=== PATIENT | female | born 2000 | race African-American/Black ===

== ENCOUNTER 2023-02-26 14:07 | Inpatient (IN) | payer OTHER ==
[2023-02-26 15:16] VITALS: BMI 26.4
[2023-02-26] MEDS ORDERED: Penicillin G Potassium 5 MILL.UNITS in Sodium Chloride 0.9% 100 ML IVPB SCH (15:16)
[2023-02-26] MEDS ORDERED: HYDROcodone/Acetaminophen 5/325 mg Tablet PO PRN ×2 (15:16)
[2023-02-26] MEDS ORDERED: Diphenoxylate HCl/Atropine Tablet PO PRN ×2 (15:16)
[2023-02-26] MEDS ORDERED: Butorphanol Tartrate 1 MG/ML VIAL SLOW IVP PRN (15:16)
[2023-02-26] MEDS ORDERED: Docusate 100 MG CAP PO PRN (15:16)
[2023-02-26] MEDS ORDERED: Ibuprofen 800 MG TAB PO PRN (15:16)
[2023-02-26] MEDS ORDERED: Lidocaine 1% (PF) 30 ML VIAL SC PRN (15:16)
[2023-02-26] MEDS ORDERED: hydrALAZINE 20 MG/ML VIAL SLOW IVP PRN (15:16)
[2023-02-26] MEDS ORDERED: Acetaminophen 500 MG TAB PO PRN (15:16)
[2023-02-26] MEDS ORDERED: Promethazine HCl 25 MG/ML VIAL IM PRN (15:16)
[2023-02-26] MEDS ORDERED: Zolpidem Tartrate 5 MG TAB PO PRN (15:16)
[2023-02-26] MEDS ORDERED: Misoprostol 200 MCG TAB PR PRN (15:16)
[2023-02-26] MEDS ORDERED: Ondansetron PF 4 MG/2 ML Vial IVP PRN (15:16)
[2023-02-26] MEDS ORDERED: Carboprost 250 MCG/ML AMP IM PRN (15:16)
[2023-02-26] MEDS ORDERED: NS w/ Oxytocin 30 units 500 ML IV SCH ×3 (15:16)
[2023-02-26] MEDS: Misoprostol 100 MCG TAB VAG SCH ×2 (15:30→19:54)
[2023-02-26] MEDS: Lactated Ringer's 1,000 ML IV SCH (15:30)
[2023-02-26 15:32] LABS: Hematocrit 34.9 % (34.9-44.5); Mean Corpuscular HGB CONC 34.4 g/dL (32.0-36.0); Mean Corpuscular Hemoglobin 32.6 pg (27.0-33.0); Mean Corpuscular Volume 94.8 fl (81.6-98.3); Mean Platelet Volume 10.4 fl (7.4-10.4); Platelet Count 249 10x3/uL (150-450); RBC Distribution Width 13.7 % (11.5-14.5); Red Blood Cell (RBC) Count 3.68 10x6/uL (3.90-5.03); White Blood Cell (WBC) Count 5.1 10x3/uL (3.5-10.5)
[2023-02-26 15:52] LABS: Syphilis Antibody Nonreactive (Nonreactive); Syphilis Antibody Index 0.16 S/CO (<1.00 Non-Reactive)
[2023-02-26 15:54] LABS: HBSAg Index 0.19 S/CO (0-0.99); HIV (1/2) Antibody/Antigen Non-Reactive (NonReactive); HIV 1/2 INDEX 0.09 S/CO (<1.00); Hep B Surf Ag - L&D Non-Reactive S/CO (NonReactive)
[2023-02-26] MEDS: Penicillin G 2.5 MILL.units 2.5 MILL.UNITS in Premix Bag 1 BAG IVPB SCH (19:54)
[2023-02-27] MEDS ORDERED: fentaNYL 2 mcg/Ropivacaine 0.2% Epidural 100 ML CADD ONE (00:01)
[2023-02-27] MEDS ORDERED: Promethazine HCl 25 MG/ML VIAL IM PRN (00:45)
[2023-02-27] MEDS ORDERED: fentaNYL 2 mcg/Ropivacaine 0.2% Epidural 100 ML CADD EPIDURAL SCH (00:45)
[2023-02-27] MEDS ORDERED: ePHEDrine Sulfate 50 MG/10 ML VIAL SLOW IVP PRN (00:45)
[2023-02-27] MEDS ORDERED: Acetaminophen 325 MG TAB PO PRN ×2 (00:45→01:11)
[2023-02-27] MEDS ORDERED: Naloxone HCl 0.4 mg/ml Vial IVP PRN ×2 (00:45)
[2023-02-27] MEDS ORDERED: Ondansetron PF 4 MG/2 ML Vial IVP PRN ×2 (00:45→01:09)
[2023-02-27] MEDS ORDERED: Moisturizing Cream (Eucerin) 113 GM JAR TOP PRN (00:45)
[2023-02-27] MEDS ORDERED: Lactated Ringer's 500 ML IV PRN (00:45)
[2023-02-27] MEDS ORDERED: diphenhydrAMINE 50 MG/ML VIAL IVP PRN (00:45)
[2023-02-27] MEDS ORDERED: Communication Order-Pharmacy FS SCH (00:45)
[2023-02-27] MEDS ORDERED: Benzocaine-Menthol 82.5 ML CAN TOP PRN (01:09)
[2023-02-27] MEDS ORDERED: Boostrix 0.5 ML (Tdap) VIAL (>/=7 yrs of age) IM ONE (01:09)
[2023-02-27] MEDS ORDERED: HYDROcodone/Acetaminophen 5/325 mg Tablet PO PRN ×2 (01:09)
[2023-02-27] MEDS ORDERED: Milk Of Magnesia 30 ML UDCUP PO PRN (01:09)
[2023-02-27] MEDS ORDERED: diphenhydrAMINE 25 MG CAP PO PRN (01:09)
[2023-02-27] MEDS ORDERED: Zolpidem Tartrate 5 MG TAB PO PRN (01:09)
[2023-02-27] MEDS ORDERED: Lanolin Ointment 7 GM TUBE TOP PRN (01:09)
[2023-02-27] MEDS ORDERED: Bisacodyl 10 MG SUPP PR PRN (01:09)
[2023-02-27] MEDS ORDERED: Misoprostol 200 MCG TAB VAG PRN (01:09)
[2023-02-27] MEDS ORDERED: hydrALAZINE 20 MG/ML VIAL SLOW IVP PRN (01:09)
[2023-02-27] MEDS ORDERED: Preparation H Ointment 28 GM TUBE PR PRN (01:09)
[2023-02-27] MEDS ORDERED: Witch Hazel-Glycerin 1 EACH JAR TOP PRN (01:11)
[2023-02-27] MEDS ORDERED: NS w/ Oxytocin 30 units 500 ML IV SCH (01:15)
[2023-02-27] MEDS: Misoprostol 100 MCG TAB VAG SCH (01:45)
[2023-02-27] MEDS: Penicillin G 2.5 MILL.units 2.5 MILL.UNITS in Premix Bag 1 BAG IVPB SCH (01:45)
[2023-02-27] MEDS: Lactated Ringer's 1,000 ML IV SCH (01:45)
[2023-02-27 02:46] LABS: Hemoglobin 13.1 g/dL (12.0-15.5); Mean Corpuscular HGB CONC 34.5 g/dL (32.0-36.0); Mean Corpuscular Hemoglobin 33.2 pg (27.0-33.0); Mean Corpuscular Volume 96.4 fl (81.6-98.3); Mean Platelet Volume 10.3 fl (7.4-10.4); Platelet Count 221 10x3/uL (150-450); RBC Distribution Width 13.2 % (11.5-14.5); Red Blood Cell (RBC) Count 3.94 10x6/uL (3.90-5.03); White Blood Cell (WBC) Count 13.2 10x3/uL (3.5-10.5)
[2023-02-27] MEDS: Ibuprofen 800 MG TAB PO SCH ×3 (05:56→22:27)
[2023-02-27] MEDS: Docusate 100 MG CAP PO SCH ×2 (09:40→22:28)
[2023-02-27] MEDS: Ferrous Sulfate 325 MG TAB PO SCH ×2 (09:43→18:28)
[2023-02-27] MEDS: Prenatal Vitamin 1 TAB PO SCH (09:44)
[2023-02-28] MEDS: Ibuprofen 800 MG TAB PO SCH ×2 (05:54→14:10)
[2023-02-28] MEDS: Ferrous Sulfate 325 MG TAB PO SCH (07:59)
[2023-02-28 09:19] VITALS: BP 112/61; TEMP 97.8
[2023-02-28] MEDS: Docusate 100 MG CAP PO SCH (09:20)
[2023-02-28] MEDS: Prenatal Vitamin 1 TAB PO SCH (09:20)
== END 2023-02-28 16:10 | disposition home or self-care (01) | DRG 807 ==
LOC: CSHLD 14:07 → CSHPED 02-27 08:35
PROVIDERS: ADMIT Obstetrics & Gynecology; ATTEND Obstetrics & Gynecology
PROC: 10E0XZZ Delivery of Products of Conception, External Approach (ICD-10-PCS; principal; 2023-02-27)
PROC: 0UQMXZZ Repair Vulva, External Approach (ICD-10-PCS; 2023-02-27)
PROC: 3E0P7VZ Introduction of Hormone into Female Reproductive, Via Natural or Artificial Opening (ICD-10-PCS; 2023-02-27)
PROC: 3E033XZ Introduction of Vasopressor into Peripheral Vein, Percutaneous Approach (ICD-10-PCS; 2023-02-27)
PROC: 3E033VJ Introduction of Other Hormone into Peripheral Vein, Percutaneous Approach (ICD-10-PCS; 2023-02-27)
DX: O99.824 Streptococcus B carrier state complicating childbirth (principal); Z37.0 Single live birth; O71.82 Other specified trauma to perineum and vulva; Z3A.39 39 weeks gestation of pregnancy
CPT/HCPCS: 36415; 85027; 86780; 86850; 86900; 86901; 87340; 87389; 88307; J7120